=== PATIENT | female | born 1990 | race Caucasian/White ===

== ENCOUNTER 2016-08-30 17:39 | Emergency (ER) | payer BC ==
[~2016-08-30] VITALS: Wt 89.9 kg
[~2016-08-30 17:39] MED LIST: CIPR500T4 PO; IBUP-1542 PO
[2016-08-30 18:58] LABS: ADD UMIC YES; URINE BILIRUBIN (Dip) NEGATIVE (NEGATIVE); URINE BLOOD (Dip) 1+ (NEGATIVE); URINE GLUCOSE (Dip) NEGATIVE (NEGATIVE); URINE KETONES (Dip) NEGATIVE (NEGATIVE); URINE LEUKOCYTE ESTERASE (Dip) 1+ (NEGATIVE); URINE NITRITE (Dip) NEGATIVE (NEGATIVE); URINE TOTAL PROTEIN (Dip) 2+ (NEGATIVE); URINE UROBILINOGEN (Dip) 1.0 E.U./dL (0.1-1.0)
[2016-08-30 19:42] LABS: URINE COLOR YELLOW (YELLOW)
[2016-08-30 19:45] LABS: BACTERIA,URINE MODERATE; SQUAMOUS EPITHELIAL CELL,UR MODERATE
--- NOTE | 2016-08-30 19:56 | ERD ---
ER Documentation Chief Complaint Date/Time DATE: 08/30/16 TIME: 19:53 Chief Complaint PAIN WITH URINATION, ONSET 1 DAY, NO VB HPI This is a 25-year-old female who presents to the emergency room for evaluation of painful urination, urinary frequency for the past 1 day. The patient states that she has had these symptoms before and was diagnosed with a urine infection and kidney infection. She denies any fevers, nausea, vomiting or vaginal discharge associated with this. She does states that she has mild pain over her left abdomen. ROS All systems reviewed and are negative except as per history of present illness. Medications Home Meds Active Scripts Ibuprofen* (Motrin*) 600 Mg Tab, 600 MG PO Q6H Y for PAIN AND OR ELEVATED TEMP, #30 TAB Prov:MANDY DINERO PA-C 12/26/15 Ciprofloxacin Hcl* (Ciprofloxacin Hcl*) 500 Mg Tablet, 500 MG PO BID for 7 Days , TAB Prov:WILFREDO GUTIERREZ PA-C 12/18/15 Reported Medications [None] No Conflict Check 05/08/10 Allergies Allergies: Coded Allergies: No Known Allergies (Verified Allergy, Mild, 12/18/15) amoxicillin (Verified Allergy, Unknown, 12/18/15) PMhx/Soc Medical and Surgical Hx: pt denies Medical Hx History of Surgery: Yes ( x2. ) Anesthesia Reaction: No Hx Neurological Disorder: No Hx Respiratory Disorders: No Hx Cardiac Disorders: No Hx Psychiatric Problems: No Hx Miscellaneous Medical Probl: No Hx Alcohol Use: No Hx Substance Use: No Hx Tobacco Use: No Smoking Status: Never smoker Physical Exam Vitals Vital Signs Date Time Temp Pulse Resp B/P Pulse Ox O2 Delivery O2 Flow Rate FiO2 08/30/16 17:41 98.6 104 18 134/95 98 Physical Exam INITIAL VITAL SIGNS: Reviewed by me GENERAL: The patient is well developed and appropriate for usual state of health in no apparent distress HEENT: Pupils equal, round, and reactive to light. EOMI. There is no scleral icterus. NECK: C-spine is soft and supple, there is no meningismus. There is no cervical lymphadenopathy. LUNGS: Clear to auscultation bilaterally. There are no rales, wheezes or rhonchi. HEART: Regular rate and rhythm, no murmurs, clicks, rubs or gallops. ABDOMEN: Mild CVAT on left, soft, non-tender, non-distended. There are bowel sounds in all four quadrants. No rebound or guarding. EXTREMITIES: There is no peripheral cyanosis or edema. No focal swelling or erythema. NEUROLOGICAL: The patient moves all four extremities with 5/5 strength. Cranial nerves II - XII are intact. Normal gait. Alert and oriented SKIN: There is no apparent rash or petechiae. HEME/LYMPHATIC: There is no evidence of excessive bruising or lymphedema. PSYCHIATRIC: The patient does not appear anxious or depressed. Results 24 hrs Laboratory Tests Test 08/30/16 18:30 Urine Bacteria MODERATE Urine Bilirubin NEGATIVE Urine Clarity CLOUDY Urine Color YELLOW Urine Glucose NEGATIVE% Urine Hemoglobin 1+ Urine Ketones NEGATIVE Urine Leukocyte Esterase 1+ Urine Microscopic RBC 10-25/HPF Urine Microscopic WBC >50/HPF Urine Nitrite NEGATIVE Urine Specific [place] 1.020 Urine Squamous Epithelial Cells MODERATE Urine Total Protein 2+ Urine Urobilinogen 1.0 E.U./dL Urine pH 8.5 Current Medications Medications (Trade) Dose Ordered Sig/Lea Route PRN Reason Start Time Stop Time Status Last Admin Dose Admin Phenazopyridine HCl (Pyridium) 100 mg ONCE ONCE PO 08/30/16 20:00 08/30/16 20:01 Trimethoprim/ Sulfamethoxazole (Bactrim (Ds)) 1 tab ONCE ONCE PO 08/30/16 20:00 08/30/16 20:01 Procedures/MDM This 25-year-old female presents to the emergency room for evaluation of painful urination for the past 2 days. The patient denies any fevers associated with this but does have mild flank pain. The patient was found to have a acute cystitis. She will be discharged home with a prescription for Pyridium, and Bactrim for 2 weeks. She was given 1 dose of Pyridium and Bactrim here in the emergency room. Patient is not at this time. Departure Diagnosis: Primary Impression: Acute cystitis Condition: Stable KRZYSZTOF MALDONADO DO Aug 30, 2016 19:56
[2016-08-30] MEDS ORDERED: BACTDS PO (19:57)
[2016-08-30] MEDS ORDERED: PHEN-537 PO (19:57)
[2016-08-30] MEDS ORDERED: PHENAZOPYRIDINE 100 MG TAB PO ONE (20:00)
[2016-08-30] MEDS ORDERED: TRIMETHOPRIM/SULFAMETHOX (DS) TAB PO ONE (20:00)
== END 2016-08-30 20:17 | disposition home or self-care (01) ==
LOC: FTE 17:39
DX: N30.00 Acute cystitis without hematuria (principal)
CPT/HCPCS: 81001; 99283; Z7610; 81003

== ENCOUNTER 2017-08-27 09:51 | Emergency (ER) | END 2017-08-27 13:43 | disposition home or self-care (01) ==

== ENCOUNTER 2017-09-08 09:53 | Emergency (ER) | END 2017-09-08 12:39 | disposition home or self-care (01) ==

== ENCOUNTER 2017-12-13 22:09 | Emergency (ER) | END 2017-12-14 01:00 | disposition home or self-care (01) ==